=== PATIENT | male | born 1965 | race African-American/Black ===

== ENCOUNTER 2017-03-20 22:11 | Emergency (ER) | payer SELFPAY ==
[~2017-03-20] VITALS: Ht 190.5 cm; Wt 98.0 kg
[2017-03-20] MEDS ORDERED: ASPIRIN 81MG TABLET PO ONE (23:30)
[2017-03-20 23:47] LABS: BASOPHILS % 0.6 % (0.0-2.0); EOSINOPHILS % 1.7 % (0.0-5.0); HEMATOCRIT. 44.8 % (42.0-52.0); HEMOGLOBIN. 15.5 g/dL (14.0-18.0); LYMPHOCYTES % 31.7 % (20.0-50.0); MEAN CORPUSCULAR HEMOGLOBIN 30.8 pg (28.0-32.0); MEAN PLATELET VOLUME 8.7 fl (7.4-10.4); MONOCYTES % 9.1 % (2.0-8.0); NEUTROPHILS % 56.9 % (40.0-76.0); PLATELET 254 x1000/uL (130-400); RED BLOOD CELL COUNT 5.04 mill/uL (4.7-6.1); RED CELL DISTRIBUTION WIDTH 13.1 % (11.6-14.6)
[2017-03-21 00:01] LABS: D-DIMER < 0.19 mg/L FEU (<0.50); INR 0.9; PROTHROMBIN TIME 9.7 sec (9.4-11.6)
[2017-03-21 00:04] LABS: CARBON DIOXIDE 25 mEq/L (21-32); CHLORIDE 106 mEq/L (98-107); TROPONIN I < 0.02 ng/mL (0.00-0.04)
[2017-03-21 01:00] VITALS: BP 118/75
[2017-03-21] MEDS ORDERED: CLONIDINE 0.1MG TABLET PO PRN (01:45)
[2017-03-21] MEDS ORDERED: ONDANSETRON HCL 4MG/2ML VIAL IV PRN (01:45)
[2017-03-21] MEDS ORDERED: SODIUM CHLORIDE 0.9% INJ 3ML FLUSH IVF SCH (06:00)
== END 2017-03-21 03:20 | disposition left against medical advice (07) ==
LOC: ER 22:28 → CANRESERV 03-21 03:24 → ENRESERV 03-21 03:24 → CANBEDREQ 03-21 07:51
DX: R07.89 Other chest pain (principal); F17.210 Nicotine dependence, cigarettes, uncomplicated; F12.10 Cannabis abuse, uncomplicated
CPT/HCPCS: 36415; 71010; 80053; 83880; 84484; 85025; 85379; 85610; 93005; 99285